=== PATIENT | male | born 1955 | race Caucasian/White ===

== ENCOUNTER 2017-12-24 17:35 | Observation (INO) | payer BC, SELFPAY ==
[2017-12-24] VITALS (7 sets, daily range): BP systolic 151–190; BP diastolic 84–105; PULSE 55–71; RESP 12–18; TEMP 36.5–36.7; O2SAT 96–98; BMI 28.7; BMI 32.4; BMI 32.5
--- NOTE | 2017-12-24 18:38 | EKG12_ITS ---
Test Reason : HIGH BP Blood Pressure : / mmHG Vent. Rate : 069 BPM Atrial Rate : 069 BPM P-R Int : 194 ms QRS Dur : 106 ms QT Int : 390 ms P-R-T Axes : 043 -62 008 degrees QTc Int : 417 ms Normal sinus rhythm Left anterior fascicular block Abnormal ECG Confirmed by DENAE MELGAR, ADRIANNA ([id number]), supervising editor trailer MERCED MARIANO ([id number] on 12/27/2017 3:48:37 PM Referred By: PAIGE Confirmed By:ADRIANNA PHILIPPE MD
--- NOTE | 2017-12-24 18:38 | CT_ITS ---
STUDY: CT BRAIN WITHOUT CONTRAST REASON FOR EXAM: Male, 62 years old. Blurred vision and facial numbness RADIATION DOSAGE (If Supplied By Facility): CTDIvol = ( 44.99 ) mGy, DLP = ( 796.11 ) mGycm TECHNIQUE: Transaxial CT imaging of the brain was performed without administration of intravenous contrast material. Individualized dose optimization techniques were used for this CT. COMPARISON: None. FINDINGS: Normal soft tissue structures. Normal calvarium. Normal size ventricles and extra-axial spaces for the patient's age. Normal white matter tracts of the cerebral hemispheres. Normal basal ganglia and thalami. Normal brainstem. Normal cerebellum. There is no intracranial hemorrhage. There are no findings of an acute ischemic infarction. There are polypoid filling defects of the left maxillary sinus consistent with mucoid retention cysts. CT/Brain/Head without Contrast IMPRESSION: Polypoid filling defects noted in the left maxillary sinus consistent with mucoid retention cysts. The remainder of the study is unremarkable. Electronically Signed: Francisco Torrez MD at 20:35 EST , Service support ,
--- NOTE | 2017-12-24 18:55 | ED.VISSUMM ---
- ER Visit Summary Date of Service: 12/24/17 Chief Complaint: Elevated blood pressure History of Present Illness: The patient is a 62 M who presents with elevated blood pressure for the past couple of days. Yesterday at work he states that he felt like his equilibrium was off. His left eye was blurry and he was having some tingling on the left side of the face. Somebody handed him a clip board in his left arm felt weak. The symptoms resolve after 15-20 minutes and they have not returned. He denies any other symptoms. He did check his blood pressure at home and it was elevated. He has no history of hypertension and takes no medications at home. Physical Examination: Vital signs reviewed. HEENT exam unremarkable. Heart is regular rate and rhythm without murmurs. Lungs are clear to auscultation. Abdomen is soft and nontender. Extremities reveal no edema. Skin exam normal. Neurologic exam normal. Test Results: Laboratory studies normal. EKG is normal sinus rhythm with a rate of 69. CAT scan of the head reveals no acute findings. Emergency Department Course and Treatment: I discussed the case with neurology. They state that due to his symptoms and his age he has a high risk of stroke in the next 30 days. They feel he should be admitted with MRIs to be performed tomorrow. The patient's ABCD 2 score is greater than 3 which puts him at moderate risk. The patient will be discussed with the hospitalist for admission Treatment Plan: [] Disposition: Admit Impression: TIA, hypertension This note was generated with [employer] dictation software. It may contain incorrect words, spelling, and punctuation that were not noted in review of the chart prior to signing ED Disposition - Plan for ED Patient: Chief Complaint: Hypertension Referrals: Martha Valdez MD [COURTESY STAFF PHYSICIAN] -
[2017-12-24 19:03] LABS: Absolute Lymphocyte Count 2.17 X10^3/ul (0.83-4.51); Absolute Neutrophil Count 4.5 X10^3/uL (2.0-7.7); Basophil# 0.03 X10^3/uL; Basophil% 0.4 % (0-1); Eosinophil# 0.24 X10^3/uL; Eosinophils% 3.1 % (0-5); Hemoglobin 15.8 g/dl (13.0-16.5); Lymphocyte # 2.17 X10^3/ul (4.0); Lymphocyte % 27.7 % (19-41); Mean Corp Hgb Conc 35.1 g/gl (32-36); Mean Corpuscular Hgb 30.4 pg (27.0-32.0); Mean Corpuscular Volume 86.5 fL (80-94); Mean Platelet Vol. 9.4 fl (6.2-12.0); Monocyte# 0.88 X10^3/uL; Monocyte% 11.2 % (0-10); Neutrophil # 4.49 X10^3/uL (2.7-7.7); Neutrophil % 57.3 % (47-70); Platelet Count 221 K/mm3 (150-450); RBC Distribution Width CV 13.1 % (11.6-14.6); White Blood Count 7.8 K/mm3 (4.4-11.0)
[2017-12-24 19:04] LABS: POSITIVE COUNT NO; POSITIVE DIFFERENTIAL NO; POSITIVE MORPHOLOGY NO
[2017-12-24 19:17] LABS: Anion Gap 7 (5-15); BUN 13 mg/dL (7-18); BUN/Creat Ratio 11.2 RATIO (10-20); Calcium,Total 8.7 mg/dL (8.5-10.1); Chloride 105 mmol/L (98-107); Creatinine, Serum 1.16 mg/dL (0.70-1.30); EST Glomerular Filtration Rate 68 mL/min (>60); Est Glom Filt Rate - Afr Amer 82 mL/min (>60); Estimated Creatinine Clearance 74.33 ml/min; Glucose 82 mg/dL (74-106); Potassium 3.6 mmol/L (3.5-5.1); Sodium Level 141 mmol/L (136-145)
[2017-12-24] MEDS: Aspirin 325 MG Tablet PO (21:29)
--- NOTE | 2017-12-24 23:41 | PCM.HP.STD ---
Problem List (1) TIA (transient ischemic attack) Status: Acute (2) HTN (hypertension) Status: Chronic History of Present Illness Date of Admission: 12/24/17 Chief Complaint: TIA The patient is a 62 year old male w/ h/o HTN admitted for TIA. He does not see his PCP on a regular basis and has noted elevated HTN in the past few years. He is not on any SBP meds. Yesterday at work around 9:00AM, he noted tingling on his left face and blurry vision of his left eye. His coworker handed him a clipboard and he failed to hold it because of left hand weakness. Nothing made the weakness better or worse despite he trying to shake it off. Weakness was not associated with any other symptoms. Weakness did not interfered with his work. Symptoms lasted for 15-20 minutes but spontaneously resolved. Symptoms never returned. However today, when he checked his SBP, his SBP was in the 160s. He became concern because of his SBP, he went to the ED for further workup. Past Medical History Past Medical History (Chronic Problems): Chronic Problems HTN (hypertension) (Chronic) Allergies No Known Allergies Allergy (Verified 12/24/17 17:36) Home Medications: Ambulatory Orders Medication Instructions Recorded NK [NK] 12/24/17 Lives: Spouse/ Significant Other Smoking Status: Former smoker Alcohol: None Drugs: None - *Family History Maternal History Items: No pertinent history Review of Systems Constitutional: Reports: Weakness. Denies: Chills, Fever, Weight Change Eyes: Reports: Blurred vision HEENT: Denies: Head Aches, Sinus Congestion, Sinus Drainage Cardiovascular: Denies: Chest Pain, Palpitations Respiratory: Denies: Cough, Shortness of breath at rest, Sputum production Gastrointestinal: Denies: Abdominal Pain, Nausea, Vomiting Genitourinary: Denies: Dysuria Musculoskeletal: Denies: Joint Pain, Joint Tenderness Skin: Denies: Rash, Wounds Neurological: Reports: Focal weakness, Numbness, Tingling Psychiatric: Denies: Anxiety, Depression, Homicidal Ideations, Suicidal Ideations Hematologic/ Lymphatic: Denies: Easy Bruising, Easy Bleeding VTE Information - Inpt Only VTE Present on Admission: No VTE Mechan Device Prophylaxis: SCD's VTE Pharm Prophylaxis ordered?: Yes Patient Problems: Active and Suspected Problems TIA (transient ischemic attack) (Acute) - Physical Exam General: Alert, Oriented x3, Cooperative HEENT: Atraumatic, PERRLA, EOMI, Normocephalic Neck: Supple, No JVD, Negative Carotid Bruits Lungs: Clear to auscultation, Normal air movement Cardiovascular: Regular rate, No murmurs Abdomen: Bowel Sounds Present, Soft, Non Tender Extremities: No edema, Capillary Refill Less than 3 Seconds Skin: No rashes, No breakdown Musculoskeletal: No Tenderness to Palpation of Joints or Extremities Neurological: Cranial nerves II-XII grossly intact Psych/Mental Status: Normal Affect, Appropriate Vital Signs Temp Pulse Resp BP Pulse Ox 98.0 F 57 L 12 160/91 H 97 12/24/17 23:01 12/24/17 23:01 12/24/17 23:01 12/24/17 23:01 12/24/17 23:01 Oxygen Delivery Method Room Air Weight: 94 kg Body Mass Index (BMI) 32.4 Assessment/Plan Active and Suspected Problems TIA (transient ischemic attack) (Acute) 62 year old male w/ h/o HTN admitted for TIA. 1) TIA: Symptoms, left hand weakness, resolved within 20 minutes and never returned. CT head was negative for acute finding. Will start high dose statin. Fasting lipid panel pending. ECHO and carotid in AM. MRI in AM. 2) HTN: SBP 150s. Will start coreg, lsiinopril and HCTZ. Monitor. 3) Prophylaxis: SCD / heparin.
[2017-12-24] MEDS: 0.9% NaCl Peripheral Flush Adult/Peds IV (23:57)
[2017-12-24] MEDS: 0.9% Normal Saline 1,000 ML 100 ML IV (23:57)
[2017-12-25] VITALS (11 sets, daily range): BP systolic 113–149; BP diastolic 70–95; PULSE 54–78; RESP 12–18; TEMP 36.6–36.8; O2SAT 93–98; BMI 32.4
[2017-12-25] MEDS: Carvedilol 6.25 MG Tablet PO (00:03)
[2017-12-25 00:48] LABS: Hemoglobin A1c 5.6 % (4.2-6.3)
--- NOTE | 2017-12-25 06:57 | PCM.PN.HOSP ---
Patient Problems: Active and Suspected Problems TIA (transient ischemic attack) (Acute) Subjective: Patient with no acute events overnight per self and per nursing report. Patient has had complete resolution of symptoms since admission. BPs have remained improved on new initiated regimen. Discussed plan of care with patient and he notes intention to leave today as he was promised in the emergency room that the workup would be completed, occluding MRI and echo; following discussion noted that sometimes MRIs are unable to be performed on Sundays and echo will not be performed on Sundays. He was upset at this possibility. Discussed options and he noted RN said MRIs would be performed, but again said he would then be encouraged to have PCP directed ECHO outpatient. Patient denies fevers, chills, nausea, emesis, abdominal pain, chest pain or dyspnea. Objective: Physical Examination: General: awake, alert, oriented x 3 and cooperative, seated upright in bed in no apparent distress. Skin: normal color, turgor, no icterus, cyanosis. HEENT: AT/NC, EOMI, PERRLA, MMM. Lungs: CTA bilaterally, moderate effort, mild decrease BL bases, no rales, ronchi or wheezing. Heart: regular rate and rhythm; no gallop, rub audible. Abdomen: soft, NTTP, ND, normal BS, Extremities: no cyanosis, clubbing, or edema. Neurological: patient awake, alert, oriented x 3; cognitive function intact; pupils equally reactive to light and accomodation; cranial nerves II-XII grossly normal, moving all 4 extremities, no focal deficits, strength preserved, sensation intact, prior weakness/paresthesias resolved. Psychiatric: affect appears normal, no acute evidence of depressive or anxiety feelings. Vitals/I&O's: Vital Signs Temp Pulse Resp BP Pulse Ox 98.2 F 57 L 12 142/87 H 95 12/25/17 05:40 12/25/17 05:40 12/25/17 05:40 12/25/17 05:40 12/25/17 05:40 Oxygen Delivery Method Room Air Weight: 207 lb 3.752 oz Body Mass Index (BMI) 32.4 Intake and Output for Last 24 Hours 12/23/17 12/24/17 12/25/17 23:59 23:59 23:59 Intake Total 730.7 / 730.7 Balance 730.7 / 730.7 Laboratory Results 12/24/17 23:05: Troponin I < 0.02 12/24/17 23:05: Hemoglobin A1c 5.6 12/25/17 06:01: Triglycerides Pending, Cholesterol Pending, LDL Cholesterol Pending, VLDL Cholesterol Pending, HDL Cholesterol Pending Current Medications Aspirin (Aspirin, Baby) 81 mg PO DAILY@0800 [facility] Atorvastatin Calcium (Lipitor) 80 mg PO QHS [facility] Carvedilol (Coreg) 6.25 mg PO BID [facility] Last Admin: 12/25/17 00:03 Dose: 6.25 mg Heparin Sodium (Porcine) (Heparin Na) 5,000 unit SC Q8 [facility] Last Admin: 12/25/17 05:16 Dose: Not Given Hydrochlorothiazide (Hydrochlorothiazide) 12.5 mg PO DAILY [facility] Sodium Chloride () 1,000 mls @ 100 mls/hr IV .Q10H [facility] Last Admin: 12/24/17 23:57 Dose: 100 mls/hr Lisinopril (Zestril) 20 mg PO DAILY [facility] Sodium Chloride () 5 - 30 ml IV UD PRN PRN Reason: SALINE FLUSH Last Admin: 12/24/17 23:57 Dose: 10 ml Assessment/Plan Active and Suspected Problems TIA (transient ischemic attack) (Acute) The patient is a 62 y/o M w/ PMHx: HTN with poor PCP follow-up, Obesity who presents to the [facility] ED on 12/24/17 with onset L sided facial paresthesias, L eye blurry vision while at work at ~ 9 am in addition to L hand weakness, prompting him to drop his clipboard, noting sxs lasted 15-20 with resolution to baseline following with noted SBP 160s with sxs assessment. (1) L sided UE Weakness, Facial paresthesias, Vision Changes, Resolved, Concerning for TIA in the setting of Uncontrolled HTN: In the ED work-up included unremarkable CBC, unremarkable BMP, EKG SR, CXR unremarkable, CT head without acute findings, trop < 0.02. Admitted to PCU, pending MRI Brain, MRA Head and Neck, maintain on asa, added statin w/ AM FLP not marked appearing, continued added BP regimen upon admission, fall precautions. Mag, TSH normal. HgbA1c 5.6%. PT, OT, Speech per protocol and will continue ED initiated Neurology consultation. Patient amenable to having MRI/MRA performed as well as awaiting Neurology assessment; however, refuses to remain for ECHO given would not be able to be performed until Tuesday. (2) Hypertension: Will continue current initiated regimen coreg, ACEI, HCTZ, PRN hydralazine. Will need PCP re-assessment and continued BP adjustment to achieve goal. (3) Obesity: Weight loss and lifestyle changes encouraged. (4) DVT Prophylaxis: SCDs, heparin.
[2017-12-25 08:19] LABS: Cholesterol 135 mg/dL (200); High Density Lipoprotein 40 mg/dL; Triglycerides 97 mg/dL; Very Low Density Lipoprotein 19 mg/dL (5-40)
[2017-12-25] MEDS: Aspirin 81 MG TAB.CHEW PO (09:03)
[2017-12-25] MEDS: Lisinopril 20 MG Tablet PO (09:03)
[2017-12-25] MEDS: HYDROCHLOROTHIAZIDE 12.5 MG CAPSULE PO (09:03)
[2017-12-25 09:20] LABS: Magnesium 2.3 mg/dL (1.6-2.6); Thyroid Stim Hormone (TSH) 2.79 uIU/mL (0.358-3.74)
--- NOTE | 2017-12-25 09:49 | MRI_ITS ---
STUDY: MRI BRAIN WITHOUT CONTRAST REASON FOR EXAM: Male, 62 years old. CVA. 20 minute episode of increased BP, blurred vision and left hand numbness 12/23/2017. TECHNIQUE: Standardized multiplanar fat and water weighted pulse sequences were obtained. COMPARISON: None. FINDINGS: No restricted diffusion to suspect acute or subacute ischemic infarct. No focal signal abnormalities throughout the brain parenchyma. The case-white matter, white matter, ventricles and cisterns are normal. Normal size of the ventricles and extra-axial spaces for the patient's age. Normal white matter tracts of the supratentorial brain. Normal bilateral basal ganglia. Normal thalami. There is no extra-axial fluid accumulation. Normal flow voids within the major intracranial circulation suggesting patency by spin echo criteria. Normal sella turcica, pituitary gland, infundibular stalk, optic chiasm and hypothalamus. Normal tectal plate and pineal gland. Normal midbrain, gato and medulla. Normal cerebellum. Normal basal cisterns. Normal bilateral temporal bones. Normal bilateral internal auditory canals. No demonstrated orbital abnormality, within the constraints of a routine brain study. Benign mucus retention cysts in the left maxillary sinus. The remaining paranasal sinuses are normal. Normal visualized soft tissue structures. Normal visualized upper cervical spine.Normal calvarium and skull base. MRI/Brain without Contrast IMPRESSION: 1. Normal unenhanced MRI of the brain. 2. Benign mucus retention cysts in the left maxillary sinus. Electronically Signed: Horacio Zhu MD at 12:06 EST , Service support ,
--- NOTE | 2017-12-25 09:50 | MRI_ITS ---
STUDY: MRA NECK WITHOUT CONTRAST REASON FOR EXAM: Male, 62 years old. CVA. 20 minute episode of increased BP, blurred vision and left hand numbness 12/23/2017. TECHNIQUE: Source images were obtained, MIPs were performed. The study was performed unenhanced. COMPARISON: None. FINDINGS: RIGHT CAROTID ARTERIES: Normal right common carotid artery (CCA). Normal right common carotid bulb. Normal origin of the right internal carotid (ICA) artery without a hemodynamically significant stenosis. Normal visualized cervical portion of the right internal carotid artery. Normal origin of the right external carotid artery (ECA). LEFT CAROTID ARTERIES: Normal left common carotid artery (CCA). Normal left common carotid bulb. Normal origin of the left internal carotid (ICA) artery without a hemodynamically significant stenosis. Normal visualized cervical portion of the left internal carotid artery. Normal origin of the left external carotid artery (ECA). VERTEBRAL ARTERIES: Normal antegrade flow within the bilateral vertebral artery without a hemodynamically significant stenosis. The right vertebral artery is slightly more dominant. AORTIC ARCH: Widely patent aortic arch and origins of the great vessels. MRI/MRA Neck WITH and W/O Contrast IMPRESSION: 1. Normal bilateral cervical carotid and vertebral arteries. 2. Normal aortic arch and origins of the great vessels. 3. Normal subclavian origins of both vertebral arteries. The right vertebral artery is more dominant. Electronically Signed: Horacio Zhu MD at 12:08 EST , Service support ,
--- NOTE | 2017-12-25 09:50 | MRI_ITS ---
STUDY: MRA OF THE HEAD WITHOUT CONTRAST REASON FOR EXAM: Male, 62 years old. CVA. 20 minute episode of increased BP, blurred vision and left hand numbness 12/23/2017. TECHNIQUE: 3-D [id number] (TOF) imaging was performed with MIPs. The study was performed unenhanced. COMPARISON: None. FINDINGS: Normal bilateral petrous carotid arteries. Normal right cavernous carotid artery with a normal supraclinoid bifurcation. Normal left cavernous carotid artery with a normal supraclinoid bifurcation. Normal right A1 segment of the anterior cerebral artery. Normal left A1 segment of the anterior cerebral artery. Normal intact anterior communicating artery (ACOM). Normal bilateral A2 segments of the anterior cerebral arteries. Normal right M1 and M2 segments of the middle cerebral arteries, with a normal M1 bifurcation. Normal left M1 and M2 segments of the middle cerebral arteries, with a normal M1 bifurcation. No visible right posterior communicating artery (PCOM). Normal left posterior communicating artery (PCOM). Normal bilateral vertebral arteries. The right vertebral artery is dominant. Normal basilar artery with a normal basilar bifurcation. The visualized bilateral superior cerebellar (SCA) arteries are normal. Normal bilateral P1, P2 and visualized P3 segments of the posterior cerebral arteries. There is no demonstrated aneurysm of the [place]. There is no major vessel occlusion or hemodynamically significant stenosis. There is no demonstrated abnormality of the visualized brain. MRI/MRA Head ONLY without Contrast IMPRESSION: Normal MRA of the head Electronically Signed: Horacio Zhu MD at 11:46 EST , Service support ,
--- NOTE | 2017-12-25 10:01 | PCM.DC ---
- Discharge Diagnoses Current Active Problems: Current Active and Chronic Problems TIA (transient ischemic attack) (Acute) HTN (hypertension) (Chronic) (1) L sided UE Weakness, Facial paresthesias, Vision Changes, Resolved, secondary to TIA in the setting of Uncontrolled HTN (2) Hypertension, Uncontrolled (3) Obesity You will use the following diet at home:: Cardiac Your food should be the consistency of: Regular Your liquids should be the consistency of: Regular/Thin Discharge Activity: Return to Normal Activity May resume sexual activity in: No Restrictions Weight Bearing Status: Weight bearing as tolerated Call your doctor if you observe: Fever of 101 or Higher, Inability to urinate, Inability to have a bowel movement, Shortness of breath, Dizziness, Fainting spells, Chest pain, Uncontrolled pain Instructions: What Is a TIA?, Discharge Instructions for Transient Ischemic Attack (TIA) Additional Instructions: During the admission part of your TIA (transient ischemic attack) work-up including cholesterol. Your levels were appropriate; however, you have still been placed on a high dose cholesterol medication as current studies have demonstrated improved stroke prevention even in patients with normal levels. Neurology notes intention to maintain you on this regimen for at least 3 months. Please continue to trend your blood pressure and later regimen with your primary care physician as needed to achieve appropriate control. During the admission you did not have an echocardiogram performed as this was not available on Tuesday. Please follow-up with Neurology and they noted intention to arrange this in addition to holter monitor testing to evaluate your cardiac rhythm over several weeks to assure no irregular rhythm. Allergies/Adverse Reactions: Allergies No Known Allergies Allergy (Verified 12/24/17 17:36) Medications to take at Discharge Aspirin [Aspirin, Baby] 81 mg PO DAILY@0800 #30 tab.chew 12/25/17 Atorvastatin Calcium [Lipitor] 80 mg PO QHS #30 tab 12/25/17 Lisinopril/Hydrochlorothiazide [Zestoretic 20/12.5 Tablet] 1 tab PO DAILY #30 tab 12/25/17 The following prescriptions were given: Aspirin [Aspirin, Baby] 81 mg PO DAILY@0800 #30 tab.chew Atorvastatin Calcium [Lipitor] 80 mg PO QHS #30 tab Lisinopril/Hydrochlorothiazide [Zestoretic 20/12.5 Tablet] 1 tab PO DAILY #30 tab Primary Care Physician: Martha Valdez MD [COURTESY STAFF PHYSICIAN] - Please follow up with your Primary Care Physician in: Follow-up within 3-5 days. Please Follow Up With: Helene Juárez MD When: Follow-up within 1 week or as directed per Neuro for additional evaluation. Proposed Discharge Date: 12/25/17
--- NOTE | 2017-12-25 10:07 | PCM.DC.SUM ---
Discharge Date and Diagnosis Date of Admission: 12/24/17 Date of Discharge: 12/25/17 - Primary Discharge Diagnosis Active and Suspected Problems TIA (transient ischemic attack) (Acute) (1) L sided UE Weakness, Facial paresthesias, Vision Changes, Resolved, Concerning for TIA in the setting of Uncontrolled HTN (2) Hypertension (3) Obesity - Secondary Discharge Diagnosis Chronic Problems HTN (hypertension) (Chronic) Hospital Course and Treatment Imaging Results: 12/25/17 08:41 MRA Head ONLY without Contrast [MRI] Urgent MRA Neck WITH and W/O Contrast [MRI] Urgent 12/25/17 09:49 Brain without Contrast [MRI] Stat 12/25/17 09:50 MRA Head ONLY without Contrast [MRI] Stat MRA Neck WITH and W/O Contrast [MRI] Stat Dr. Juárez Neurology Operations: None Procedures: EKG Summary of Care Provided: The patient is a 62 y/o M w/ PMHx: HTN with poor PCP follow-up, Obesity who presented to the [facility] ED on 12/24/17 with onset L sided facial paresthesias, L eye blurry vision while at work at ~ 9 am in addition to L hand weakness, prompting him to drop his clipboard, noting sxs lasted 15-20 with resolution to baseline following with noted SBP 160s with sxs assessment. In the ED work-up included unremarkable CBC, unremarkable BMP, EKG SR, CXR unremarkable, CT head without acute findings, trop < 0.02. Admitted to PCU, MRI Brain, MRA Head and Neck obtained and were all unremarkable with no abnormalities or acute findings. Patient was initiated and maintained on asa, added statin w/ AM FLP not marked appearing, continued added BP regimen upon admission with improved BP. Mag, TSH normal. Weight loss and lifestyle changes encouraged. HgbA1c 5.6%. PT, OT, Speech per protocol and continued ED initiated Neurology consultation. Patient was amenable to having MRI/MRA performed as well as awaiting Neurology assessment; however, refused to remain for ECHO given would not be able to be performed until Tuesday. Discussed with Neurology and upon discharge plan for follow-up with PCP as well as Neurology with planned arrangement per their office ECHO and 21 day HM evaluation with continued asa, statin high dose for at least 3 months based on current trials in addition to new BP regimen with encouraged continued PCP monitoring for adjustments as needed to achieve goal. Discharge Activity: Return to Normal Activity May resume sexual activity in: No Restrictions Weight Bearing Status: Weight bearing as tolerated Call your doctor if you observe: Fever of 101 or Higher, Inability to urinate, Inability to have a bowel movement, Shortness of breath, Dizziness, Fainting spells, Chest pain, Uncontrolled pain Home Medications: Medications to take at Discharge Aspirin [Aspirin, Baby] 81 mg PO DAILY@0800 #30 tab.chew 12/25/17 Atorvastatin Calcium [Lipitor] 80 mg PO QHS #30 tab 12/25/17 Lisinopril/Hydrochlorothiazide [Zestoretic 20/12.5 Tablet] 1 tab PO DAILY #30 tab 12/25/17 Following Prescrptions Were Given to Patient: Aspirin [Aspirin, Baby] 81 mg PO DAILY@0800 #30 tab.chew Atorvastatin Calcium [Lipitor] 80 mg PO QHS #30 tab Lisinopril/Hydrochlorothiazide [Zestoretic 20/12.5 Tablet] 1 tab PO DAILY #30 tab Primary Care Physician: Martha Valdez MD [COURTESY STAFF PHYSICIAN] - Please follow up with your Primary Care Physician in: Follow-up within 3-5 days. Please Follow Up With: Helene Juárez MD When: Follow-up within 1 week or as directed per Neuro for additional evaluation. Patient Instructions: What Is a TIA?, Discharge Instructions for Transient Ischemic Attack (TIA) Disposition: Home Minutes spent on discharge:: 25 Patient Condition:: Fair Meaningful Use Info Meaningful Use Diagnoses (Choose all that apply): None applicable Code Visit OBSV E&M: 18946 Observation care discharge
--- NOTE | 2017-12-25 11:05 | PCM.CONS.GEN ---
Problem List (1) TIA (transient ischemic attack) Status: Acute Qualifiers: Transient cerebral ischemia type: unspecified Qualified Code(s): G45.9 - Transient cerebral ischemic attack, unspecified Reason for Consult Date of Consultation: 12/25/17 Reason for Consultation: TIA History of Present Illness: The patient is a 62 year old M with PMH HTN (not on any medication per patient) admitted with left arm weakness and blurred vision. Per patient he was at work on Tuesday (12/23/17) and noticed blurred vision in the left eye, his lips started tingling and then had weakness in the left UE, where he could not hold things given to him, lasted for about 15-20 minutes before he came back to normal, had high BP at home and came to [facility] ED for evaluation, BP on admission was 190/95 mmHg and was admitted for work up of TIA. Per patient he is not on any medications at home and does not take any ASA at baseline. He denies any MATHEWS, visual disturbances at present, denies any new focal motor weakness and sensory loss. He lives with his , does not use cane or walker to ambulate, does drive and does not need any assistance for his ADLs. [] Past Medical History Past Medical History (Chronic Problems): Chronic Problems HTN (hypertension) (Chronic) Allergies No Known Allergies Allergy (Verified 12/24/17 17:36) Home Medications: Ambulatory Orders Medication Instructions Recorded Aspirin [Aspirin, Baby] 81 mg PO DAILY@0800 #30 tab.chew 12/25/17 Atorvastatin Calcium [Lipitor] 80 mg PO QHS #30 tab 12/25/17 Lisinopril/Hydrochlorothiazide 1 tab PO DAILY #30 tab 12/25/17 [Zestoretic 20/12.5 Tablet] Lives: Spouse/ Significant Other Smoking Status: Former smoker Alcohol: None Drugs: None - *Family History Maternal History Items: No pertinent history Review of Systems Constitutional: Reports: - - complete ROS negative except as documented in HPI Patient Problems: Active and Suspected Problems TIA (transient ischemic attack) (Acute) - Physical Exam General: Alert, Oriented x3, Cooperative HEENT: Atraumatic, PERRLA, EOMI, Normocephalic Neck: Supple, No JVD, Negative Carotid Bruits Lungs: Clear to auscultation, Normal air movement Cardiovascular: Regular rate, No murmurs Abdomen: Bowel Sounds Present, Soft, Non Tender Extremities: No edema, Capillary Refill Less than 3 Seconds Skin: No rashes, No breakdown Musculoskeletal: No Tenderness to Palpation of Joints or Extremities Neurological: - - consious, alert, AoA x3, CN 2-12 grossly intact, power 5/5 all 4 limbs, no sensory loss, no cerebellar signs, Reflexes + B/L B/S/T/K/A, gait normal. NIHSS 0 at present Psych/Mental Status: Normal Affect, Appropriate Vital Signs Temp Pulse Resp BP Pulse Ox 98.1 F 57 L 16 141/86 H 95 12/25/17 10:00 12/25/17 10:00 12/25/17 10:00 12/25/17 10:00 12/25/17 10:00 Oxygen Delivery Method Room Air Weight: 94 kg Body Mass Index (BMI) 32.4 Intake and Output for Last 24 Hours 12/23/17 12/24/17 12/25/17 23:59 23:59 23:59 Intake Total 730.7 / 730.7 Balance 730.7 / 730.7 Laboratory Tests Past 24 Hrs 12/24/17 12/24/17 12/25/17 23:05 23:05 06:01 Hemoglobin A1c 5.6 Magnesium Troponin I < 0.02 Triglycerides 97 Cholesterol 135 LDL Cholesterol 76 VLDL Cholesterol 19 HDL Cholesterol 40 TSH 12/25/17 06:01 Hemoglobin A1c Magnesium 2.3 Troponin I Triglycerides Cholesterol LDL Cholesterol VLDL Cholesterol HDL Cholesterol TSH 2.79 Assessment/Plan Active and Suspected Problems TIA (transient ischemic attack) (Acute) The patient is a 62 year old M with PMH HTN (not on any medication per patient) admitted with left arm weakness and blurred vision. Per patient he was at work on Tuesday (12/23/17) and noticed blurred vision in the left eye, his lips started tingling and then had weakness in the left UE, where he could not hold things given to him, lasted for about 15-20 minutes before he came back to normal, had high BP at home and came to [facility] ED for evaluation the next day (12/24/17), BP on admission was 190/95 mmHg and was admitted for work up of TIA. Per patient he is not on any medications at home and does not take any ASA at baseline. He denies any MATHEWS, visual disturbances at present, denies any new focal motor weakness and sensory loss. He lives with his , does not use cane or walker to ambulate, does drive and does not need any assistance for his ADLs. NIHSS 0 at present. Impression TIA Plan -Recommend starting ASA 81 mg PO once daily -Lipitor 80 mg PO once daily q hs -CT head-nothing acute. -Recommend MRI brain/MRA head/neck -Recommend TTE -LDL-76, Hba1c- 5.6 -Recommend PT/OT -GI/DVT prophylaxis -Better BP control with channel rougher goal of BP < 130/80 mmHg -Patient counseled to take HTN medications compliantly and he understands the same. -Recommend 30 day event recorder -Neurology follow up in 2 weeks after discharge -Patient needs to be referred to the PCP since he does not have one at present, will defer to primary team -Stroke education provided, risk factors discussed in detail -Please call with questions if any -Thank you for allowing us to participate in patient's care and management. I spent 60 minutes taking history, doing physical examination, reviewing medical records, coordinating care and counseling the patient. Code Visit Inpatient E&M: [id number] Init Hosp L3
== END 2017-12-25 12:44 | disposition home or self-care (01) ==
LOC: ED 19:35 → PCU 22:09
PROVIDERS: Admitting Provider Internal Medicine; Emergency Provider Emergency Medicine; Visit Provider Family Medicine
DX: R53.1 Weakness (principal); R20.2 Paresthesia of skin; I10 Essential (primary) hypertension; E66.9 Obesity, unspecified; Z68.32 Body mass index [BMI] 32.0-32.9, adult; Z71.3 Dietary counseling and surveillance; H53.8 Other visual disturbances; Z87.891 Personal history of nicotine dependence
CPT/HCPCS: 36415; 70450; 70544; 70549; 70551; 80048; 80061; 83036; 83735; 84443; 84484; 85025; 93005; 99218; 99282; A9585; J7030; A4216; G0378

== ENCOUNTER → 2018-02-01 12:03 | Outpatient (CLI) | payer BC, SELFPAY ==
[2018-02-01 14:32] LABS: Anion Gap 8 (5-15); BUN 12 mg/dL (7-18); BUN/Creat Ratio 9.9 RATIO (10-20); Chloride 106 mmol/L (98-107); Creatinine, Serum 1.21 mg/dL (0.70-1.30); EST Glomerular Filtration Rate 65 mL/min (>60); Est Glom Filt Rate - Afr Amer 78 mL/min (>60); Glucose 86 mg/dL (74-106); Potassium 3.9 mmol/L (3.5-5.1); Sodium Level 141 mmol/L (136-145)
== END ==
PROVIDERS: Family Provider Family Medicine; PCP Family Medicine; Visit Provider Family Medicine
DX: I10 Essential (primary) hypertension (principal)
CPT/HCPCS: 36415; 80048

== ENCOUNTER → 2019-05-22 17:57 | Outpatient (CLI) | payer BC, SELFPAY ==
[2019-05-22 18:09] LABS: Bacteria 0 SEEN /hpf (None Seen); Red Blood Cells-Urine 0 SEEN /hpf (0-5); Squamous Epithelial Cells - UA 0 SEEN /hpf (0-5)
[2019-05-22 19:30] LABS: Mucous, Urine RARE /hpf (<or=2+); White Blood Cells 0-5 SEEN /hpf (0-5)
[2019-05-22 19:36] LABS: Color, Urine Yellow (Yellow); Glucose, Dipstick Normal (Normal); Ketone-Dipstick Negative (Negative); Leukocyte Esterase-Dipstick 25 /ul (Negative); Nitrite-Dipstick Negative (Negative); Occult Blood-Urine 10 /ul (Negative); Protein-Dipstick Negative (Negative); Specific Gravity, Urine 1.025 (1.002-1.030); Urine Bilirubin Dipstick Negative (Negative); Urine Clarity Clear (Clear); Urine Urobilinogen Normal (Normal)
== END ==
PROVIDERS: Family Provider Family Medicine; PCP Family Medicine; Visit Provider Nurse Practitioner Adult Health
DX: R31.9 Hematuria, unspecified (principal)
CPT/HCPCS: 81001

== ENCOUNTER → 2020-08-28 09:05 | Outpatient (CLI) | payer BC, SELFPAY ==
[2018-01-03 12:05] VITALS: BMI 29.1
[2020-08-28 10:53] LABS: Anion Gap 6 (5-15); BUN 14 mg/dL (7-18); BUN/Creat Ratio 12.8 RATIO (10-20); Calcium,Total 9.4 mg/dL (8.5-10.1); Chloride 106 mmol/L (98-107); Cholesterol 150 mg/dL (200); Creatinine, Serum 1.09 mg/dL (0.70-1.30); EST Glomerular Filtration Rate 73 mL/min (>60); Est Glom Filt Rate - Afr Amer 88 mL/min (>60); Glucose 110 mg/dL (74-106); High Density Lipoprotein 40 mg/dL; PSA,Total - Annual Screen 3.82 ng/mL (0.00-4.00); Potassium 3.8 mmol/L (3.5-5.1); Sodium Level 141 mmol/L (136-145); Triglycerides 98 mg/dL; Very Low Density Lipoprotein 20 mg/dL (5-40)
== END ==
PROVIDERS: PCP Family Medicine; Referring Provider Family Medicine; Visit Provider Family Medicine
DX: I10 Essential (primary) hypertension (principal); E78.5 Hyperlipidemia, unspecified; Z12.5 Encounter for screening for malignant neoplasm of prostate
CPT/HCPCS: 36415; 80048; 80061; 84153; G0103

== ENCOUNTER → 2021-10-01 | Outpatient (CLI) | payer BC, SELFPAY | END | disposition home or self-care (01) | PROVIDERS: PCP Family Medicine; Referring Provider Family Medicine; Visit Provider Family Medicine | DX: U07.1 COVID-19 (principal) | CPT/HCPCS: 87635; U0005; U0003 ==

== ENCOUNTER → 2023-05-03 | Outpatient (CLI) | payer MEDICARE, OTHER, SELFPAY ==
[2023-05-03 11:05] LABS: AST(SGOT) 13 U/L (15-37); Alanine Aminotransfer ALT/SGPT 30 U/L (16-61); Albumin, Serum 3.5 g/dL (3.2-5.0); Alkaline Phosphatase 76 U/L (45-117); Anion Gap 5 (5-15); BUN 14 mg/dL (7-18); BUN/Creat Ratio 11.9 RATIO (10-20); Chloride 109 mmol/L (98-107); Cholesterol 136 mg/dL (200); Creatinine, Serum 1.18 mg/dL (0.70-1.30); EST Glomerular Filtration Rate 66 mL/min (>60); Est Glom Filt Rate - Afr Amer 79 mL/min (>60); Globulin 3.6 g/dL (2.2-4.2); Glucose 105 mg/dL (74-106); High Density Lipoprotein 36 mg/dL; PSA,Total - Annual Screen 4.08 ng/mL (0.00-4.00); Potassium 3.8 mmol/L (3.5-5.1); Protein, Total 7.1 g/dL (6.4-8.2); Sodium Level 140 mmol/L (136-145); Triglycerides 127 mg/dL; Very Low Density Lipoprotein 25 mg/dL (5-40)
== END | disposition home or self-care (01) ==
LOC: MTLAB 08:18
PROVIDERS: PCP Family Medicine; Referring Provider Family Medicine; Visit Provider Family Medicine
DX: E78.5 Hyperlipidemia, unspecified (principal); Z12.5 Encounter for screening for malignant neoplasm of prostate
CPT/HCPCS: 36415; 80053; 80061; 84153; G0103